=== PATIENT | male | born 1990 | race Caucasian/White ===

== ENCOUNTER 2018-01-29 22:30 | Emergency (ER) | payer SELFPAY ==
[~2018-01-29] VITALS: Ht 172.7 cm; Wt 71.7 kg
[2018-01-29 22:40] VITALS: BP 138/83
[2018-01-29] MEDS ORDERED: NKM (22:40)
[2018-01-29] MEDS ORDERED: Lidocaine 1% 10mg/ml/Epi 0.005mg/ml 30ml vial INJ ONE (22:45)
[2018-01-29] MEDS ORDERED: Norco 5mg/325mg tab ORAL ONE (22:45)
[2018-01-29] MEDS ORDERED: Bactrim-DS 1 tab ORAL ONE (22:45)
[2018-01-29] MEDS ORDERED: BACTRIM DS TAB1 EAC1 ORAL (23:21)
[2018-01-29] MEDS ORDERED: HYDROCODON-ACE1 EA15 ORAL (23:21)
[2018-01-29] MEDS ORDERED: IBUPROFEN600 MG ORAL (23:21)
--- NOTE | 2018-01-29 23:22 | Emergency Room Report ---
History of Present Illness General Chief Complaint: Skin Rash/Abscess Source: Patient Present Illness HPI This is a 27-year-old male presents with a left leg pain with possible spider bite. Onset for last 4 days. Worse today. Draining pus. No fever chills but no nausea no vomiting. Pain is 9 out of 10. Allergies: Coded Allergies: No Known Allergies (Unverified , 01/29/18) Patient History Past Medical History: see triage record, old chart reviewed Past Surgical History: none Pertinent Family History: none Social History: Denies: smoking Immunizations: other Reviewed Nursing Documentation: PMH: Agreed; PSxH: Agreed Nursing Documentation-PMH Past Medical History: No Stated History Review of Systems Eye: Denies: eye pain, blurred vision ENT: Denies: ear pain, nose congestion, throat swelling Respiratory: Denies: cough, shortness of breath Cardiovascular: Denies: chest pain, palpitations Gastrointestinal: Denies: abdominal pain, diarrhea, nausea, vomiting Musculoskeletal: Reports: muscle pain, muscle stiffness; Denies: back pain, joint pain Skin: Denies: rash Neurological: Denies: headache, numbness Endocrine: Denies: increased thirst, increased urine Hematologic/Lymphatic: Denies: easy bruising All Other Systems: negative except mentioned in HPI Physical Exam Vital Signs Date Time Temp Pulse Resp B/P (MAP) Pulse Ox O2 Delivery O2 Flow Rate FiO2 01/29/18 22:36 98.0 104 18 138/83 96 Room Air 98.1 vitals normal Sp02 EP Interpretation: reviewed, normal General Appearance: well appearing, no apparent distress, alert Head: normocephalic, atraumatic Eyes: bilateral eye PERRL, bilateral eye EOMI ENT: hearing grossly normal, normal pharynx Neck: full range of motion, supple, no meningismus Respiratory: chest non-tender, lungs clear, normal breath sounds Cardiovascular #1: regular rate, rhythm, no murmur Gastrointestinal: normal bowel sounds, non tender, no mass, no organomegaly, no bruit, non-distended Musculoskeletal: back normal, gait/station normal, normal range of motion, other - Left leg: On the lateral aspect there is an indurated area of 3-4 cm. Surrounding erythema of 5-6 cm. One necrotic center. Neurologic: alert, oriented x3 Psychiatric: mood/affect normal Skin: warm/dry Procedures Incision and Drainage Incision and Drainage : Consent: Verbal Site: left leg Blade Size: 11 I & D Procedure: betadine prep, sterile drapes applied, sterile dressing applied, gauze wick placed Wound Location: lower extremity Irrigated w/ Saline (ccs): 1000 Anesthesia: Lidocaine w/ Epi Volume Anesthetic (ccs): 5 Patient Tolerated: Well Complications: None Medical Decision Making Diagnostic Impression: Primary Impression: Abscess of left lower extremity excluding foot ER Course Patient with an abscess to the leg. No evidence of deep infection or necrotizing fasciitis. We'll discharge home. Last Vital Signs Date Time Temp Pulse Resp B/P (MAP) Pulse Ox O2 Delivery O2 Flow Rate FiO2 01/29/18 22:48 98.0 01/29/18 22:40 104 18 138/83 96 Room Air Status: improved Disposition: HOME, SELF-CARE Condition: Stable Scripts Ibuprofen* (MOTRIN*) 600 Mg Tablet 600 MG ORAL THREE TIMES A DAY, #30 TAB 0 Refills Prov: ELLEN CORNEJO M.D. 01/29/18 Hydrocodone/Acetaminophen 5-325* (HYDROCODONE/ACETAMINOPHEN 5-325*) 1 Each Tablet 1 TAB ORAL Q6H PRN for For Pain, #10 TAB 0 Refills Prov: ELLEN CORNEJO M.D. 01/29/18 Trimethoprim/Sulfamethoxazole 160/800* (BACTRIM DS TABLET*) 1 Each Tablet 1 TAB ORAL Q12H, #14 TAB 0 Refills Prov: ELLEN CORNEJO M.D. 01/29/18 Referrals: NOT CHOSEN IPA/,REFERRING (PCP) Patient Instructions: Abscess Additional Instructions: Follow-up your doctor in 2 days for recheck. Return if worse. ELLEN CORNEJO M.D. Jan 29, 2018 23:22
[2018-01-29 23:25] VITALS: BP 138/83
== END 2018-01-29 23:25 | disposition home or self-care (01) ==
LOC: EMR 22:58
DX: L02.416 Cutaneous abscess of left lower limb (principal)
CPT/HCPCS: 10060; 99284

== ENCOUNTER 2019-12-13 20:51 | Emergency (ER) | payer SELFPAY ==
[~2019-12-13] VITALS: Ht 172.7 cm; Wt 70.3 kg
[~2019-12-13 20:51] MED LIST: BACTRIM DS TAB1 EAC1 ORAL; HYDROCODON-ACE1 EA15 ORAL; IBUPROFEN600 MG ORAL; NKM
--- NOTE | 2019-12-13 21:16 | NUR ---
ED Nurse Note: called pt not in waiting room
--- NOTE | 2019-12-13 21:18 | NUR ---
ED Nurse Note: PT walked in to ED for C/O painful rash allover his body for about a year. PT reports being treated with scabies medication and abx in the past with relief.
[2019-12-13 21:19] VITALS: BP 180/95
[2019-12-13] MEDS ORDERED: Clindamycin 150mg cap ORAL ONE (21:45)
--- NOTE | 2019-12-13 21:45 | NUR ---
ED Nurse Note: Pt seen in RME room, went to get medication for pt and he was not seen in the room. PT not seen in waiting room either. ERMD aware.
--- NOTE | 2019-12-13 22:00 | Emergency Room Report ---
History of Present Illness General Chief Complaint: Skin Rash/Abscess Source: Patient, Medical Record Present Illness HPI This a 29-year-old male with no past medical history. He denies any drug use. He presents with chief complaint of bug bites or scabies bites. He said is been ongoing for months. He denies any fever chills but denies any nausea vomiting. Is itchy. Symptoms are some drainage. Is spreading to his body. He came in to see if any problem with scabies. Right now no pain no fever. Allergies: Coded Allergies: No Known Allergies (Unverified , 01/29/18) Patient History Past Medical History: see triage record, old chart reviewed Past Surgical History: none Pertinent Family History: none Social History: Denies: smoking Immunizations: other Reviewed Nursing Documentation: PMH: Agreed; PSxH: Agreed Nursing Documentation-PMH Past Medical History: No Stated History Review of Systems Eye: Denies: eye pain, blurred vision ENT: Denies: ear pain, nose congestion, throat swelling Respiratory: Denies: cough, shortness of breath Cardiovascular: Denies: chest pain, palpitations Gastrointestinal: Denies: abdominal pain, diarrhea, nausea, vomiting Musculoskeletal: Denies: back pain, joint pain Skin: Reports: lesions; Denies: rash Neurological: Denies: headache, numbness Endocrine: Denies: increased thirst, increased urine Hematologic/Lymphatic: Denies: easy bruising All Other Systems: negative except mentioned in HPI Physical Exam Vital Signs Date Time Temp Pulse Resp B/P (MAP) Pulse Ox O2 Delivery O2 Flow Rate FiO2 12/13/19 20:58 98.6 81 18 155/99 (117) 98 Room Air Vitals with high blood pressure Sp02 EP Interpretation: reviewed, normal General Appearance: well appearing, no apparent distress, alert Head: normocephalic, atraumatic Eyes: bilateral eye PERRL, bilateral eye EOMI ENT: hearing grossly normal, normal pharynx Neck: full range of motion, supple, no meningismus Respiratory: chest non-tender, lungs clear, normal breath sounds Cardiovascular #1: regular rate, rhythm, no murmur Gastrointestinal: normal bowel sounds, non tender, no mass, no organomegaly, no bruit, non-distended Musculoskeletal: back normal, normal range of motion, gait/station normal Psychiatric: mood/affect normal Skin: other - He has multiple scattered lesions on his body from skin picking. Some have a scab over it. There is no drainage. These are area that he can reach. None on his mid or upper back where he can reach. Medical Decision Making Diagnostic Impression: Primary Impression: Cellulitis Qualified Codes: L03.90 - Cellulitis, unspecified Additional Impression: Substance abuse ER Course Patient presents with skin ulceration with cellulitis. 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 He is jittery. I suspect that he has substance abuse most likely methamphetamine. He denied this. I ordered clindamycin here and was to discharge him with a prescription for clindamycin and mupirocin. When nurse went to get antibiotics, he eloped. Last Vital Signs Date Time Temp Pulse Resp B/P (MAP) Pulse Ox O2 Delivery O2 Flow Rate FiO2 12/13/19 21:19 98.6 80 18 180/95 98 Room Air Status: unchanged Disposition: ELOPED Condition: Stable Partha Hidalgo MD Dec 13, 2019 22:00
== END 2019-12-13 21:45 | disposition left against medical advice (07) ==
LOC: EMR 21:11
DX: L03.90 Cellulitis, unspecified (principal); F19.10 Other psychoactive substance abuse, uncomplicated
CPT/HCPCS: 99282

== ENCOUNTER 2020-08-24 19:18 | Emergency (ER) | payer MEDICAID, OTHER ==
[~2020-08-24] VITALS: Ht 175.3 cm; Wt 72.6 kg
[2020-08-24 19:30] VITALS: BP 149/88
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
[2020-08-24] MEDS ORDERED: Bacitracin Oint UD TOPIC ONE (19:45)
[2020-08-24] MEDS ORDERED: Tetanus/Diptheria/Pertussis IM ONE (20:00)
[2020-08-24 20:15] LABS: POTASSIUM 4.3 MMOL/L (3.5-5.1); SODIUM 138 MMOL/L (136-145)
[2020-08-24 20:20] LABS: ALANINE AMINOTRANSFERASE 18 U/L (12-78); ALBUMIN 4.2 G/DL (3.4-5.0); ALBUMIN/GLOBULIN RATIO 1.2 (1.0-2.7); ALKALINE PHOSPHATASE 100 U/L (46-116)
[2020-08-24 20:22] LABS: ANION GAP 10 mmol/L (5-15); ASPARTATE AMINO TRANSFERASE 14 U/L (15-37); BILIRUBIN,TOTAL 0.4 MG/DL (0.2-1.0); BLOOD UREA NITROGEN 14 mg/dL (7-18); CALCIUM 9.2 MG/DL (8.5-10.1); CARBON DIOXIDE 29 MMOL/L (21-32); CHLORIDE 100 MMOL/L (98-107); CREATINE KINASE 120 U/L (26-308); CREATININE 1.2 MG/DL (0.55-1.30)
[2020-08-24 20:25] LABS: BASOPHILS % (AUTO) 0.6 % (0.0-2.0); EOSINOPHILS % (AUTO) 0.6 % (0.0-3.0); HEMATOCRIT 44.6 % (42.0-52.0); HEMOGLOBIN 14.4 G/DL (14.2-18.0); LYMPHOCYTES % (AUTO) 12.9 % (20.0-45.0); MEAN CORPUSCULAR VOLUME 89 FL (80-99); MONOCYTES % (AUTO) 6.3 % (1.0-10.0); NEUTROPHILS % (AUTO) 79.6 % (45.0-75.0); PLATELET COUNT 336 K/UL (150-450); RED BLOOD COUNT 4.99 M/UL (4.70-6.10); RED CELL DISTRIBUTION WIDTH 13.8 % (11.6-14.8); WHITE BLOOD COUNT 16.3 K/UL (4.8-10.8)
[2020-08-24 22:30] VITALS: BP 134/87
[2020-08-24 22:30] LABS: APPEARANCE,URINE CLEAR; BILIRUBIN, URINE NEGATIVE (NEGATIVE); COLOR,URINE PALE YELLOW; GLUCOSE, URINE (UA) NEGATIVE (NEGATIVE); KETONES,URINE 1+ (NEGATIVE); LEUKOCYTE ESTERASE ,URINE NEGATIVE (NEGATIVE); NITRITE,URINE NEGATIVE (NEGATIVE); PH,URINE 6 (4.5-8.0); PROTEIN,URINE NEGATIVE (NEGATIVE); UROBILINOGEN,URINE 4 MG/DL (0.0-1.0)
[2020-08-24] MEDS ORDERED: BACITRACIN15 GM TOPIC (23:22)
[2020-08-24] MEDS ORDERED: IBUPROFEN600 M1 ORAL (23:22)
[2020-08-24 23:30] VITALS: BP 134/87
== END 2020-08-24 23:30 | disposition home or self-care (01) ==
LOC: EDBD 19:18 → EMR 19:36
DX: F15.10 Other stimulant abuse, uncomplicated (principal); M62.838 Other muscle spasm; R46.89 Other symptoms and signs involving appearance and behavior; F17.200 Nicotine dependence, unspecified, uncomplicated; F42.4 Excoriation (skin-picking) disorder; Z23 Encounter for immunization
CPT/HCPCS: 36415; 80053; 80307; 81003; 82550; 85025; 90471; 90715; 93005; 96360; G0480; G0481; J7030; Z7502; 99284